=== PATIENT | female | born 1985 | race Caucasian/White ===

== ENCOUNTER 2016-09-06 22:21 | Emergency (ER) | payer OTHER ==
[~2016-09-06] VITALS: Ht 165.1 cm; Wt 109.0 kg
[2016-09-06 22:33] VITALS: BP 161/103; PULSE 98; RESP 16; TEMP 98.6; O2SAT 99
[2016-09-06] MEDS ORDERED: LISI10TA3 PO (23:19)
[2016-09-06] MEDS ORDERED: Birth Control PO (23:20)
--- NOTE | 2016-09-06 23:40 | PD ---
HPI Chief Complaint: Laceration/Skin Injury Time Seen by Provider: 23:34 Travel History International Travel<30 days: No Contact w/Intl Traveler<30days: No Traveled to known affect area: No History of Present Illness HPI The patient is a 31-year-old female that avulsed skin on the radial aspect of the left second finger with a quality facilitator at 8:30 PM tonight. She cannot remember when her last tetanus shot was. Her last tetanus shot could've been over 10 years ago. PFSH Past Medical History Cardiovascular Problems: Yes (HTN on meds ) Diminished Hearing: No Hypertension: Yes Tetanus Vaccination: Unknown Influenza Vaccination: Yes ?: Unknown LMP: "3 days ago" Ovarian Cysts: Yes Past Surgical History Gynecologic Surgery: Yes (Left ovary removal from ovarian cyst ) Social History Alcohol Use: Yes (Occasionally ) Tobacco Use: No Substance Use: No Allergies-Medications (Allergen,Severity, Reaction): Coded Allergies: Neosporin (Verified Allergy, Severe, Facial Swelling, 09/06/16) Reported Meds & Prescriptions Reported Meds & Active Scripts Active Reported [ Control] 1 Tab PO DAILY Lisinopril 10 Mg Tab 10 Mg PO DAILY Physical Exam Narrative GENERAL: Well-nourished, well-developed patient in slight apparent distress with her left index finger discomfort. SKIN: Focused skin assessment warm/dry. There is a 1 cm x 3 mm ovoid skin evulsion on the radial aspect of the distal phalanx of the left index finger. The bone is not exposed. This cannot be sewn together. HEAD: Normocephalic. EYES: No scleral icterus. No injection or drainage. NECK: Supple, trachea midline. No JVD or lymphadenopathy. CARDIOVASCULAR: Regular rate and rhythm without murmurs, gallops, or rubs. RESPIRATORY: Breath sounds equal bilaterally. No accessory muscle use. GASTROINTESTINAL: Abdomen soft, non-tender, nondistended. MUSCULOSKELETAL: No cyanosis, or edema. BACK: Nontender without obvious deformity. No CVA tenderness. Data Data Last Documented VS Vital Signs Date Time Temp Pulse Resp B/P Pulse Ox O2 Delivery O2 Flow Rate FiO2 09/07/16 00:05 88 18 159/78 95 Room Air 09/06/16 22:33 98.6 Orders Wound Care (09/07/16 00:08) Tetanus/Diphtheria Tox Adult (Tetanus/Di (09/07/16 00:15) MDM Medical Decision Making Medical Screen Exam Complete: Yes Emergency Medical Condition: Yes Medical Record Reviewed: Yes Differential Diagnosis Skin avulsion left second finger, bone exposure with skin avulsion Narrative Course There is no bone exposure with this skin avulsion. We will bandage it here with fine mesh gauze next to the avulsion. Diagnosis Primary Impression: Avulsion of skin of index finger Additional Instructions: Leave the bandage on for about 6 or 7 days. This will require you keeping it completely clean and dry. Using the materials that we provided you you can change the bandage. Disposition: 01 DISCHARGE HOME Condition: Stable Paul Ch MD Sep 06, 2016 23:40
[2016-09-07 00:05] VITALS: BP 159/78; PULSE 88; RESP 18; O2SAT 95
[2016-09-07] MEDS ORDERED: TETANUS/DIPHTHERIA TOXOID ADULT 0.5 ML VIAL IM ONE (00:15)
== END 2016-09-07 00:45 | disposition home or self-care (01) ==
LOC: PHED 22:21
DX: S61.201A Unspecified open wound of left index finger without damage to nail, initial encounter (principal); I10 Essential (primary) hypertension; Z23 Encounter for immunization; W27.4XXA Contact with kitchen utensil, initial encounter
CPT/HCPCS: 90471; 90714